=== PATIENT | male | born 1960 | race Caucasian/White ===

== ENCOUNTER 2018-03-21 12:09 | Inpatient (IN) ==
[2018-03-21] MEDS ORDERED: SODIUM CHLORIDE 0.9% 1,000 ML IV STA (12:50)
[2018-03-21] MEDS ORDERED: ONDANSETRON 4 MG/2 ML VIAL IV STA (12:50)
[2018-03-21 13:07] LABS: Basophils # 0.1 10*3/uL (0.0-0.2); Basophils % 0.5 % (0.0-0.8); Eosinophils # 0.1 10*3/uL (0.0-0.87); Eosinophils % 0.5 % (0.00-10.9); Hemoglobin 9.4 GM/DL (14.0-18.0); Immature Granulocytes % 1.3 %; Immature Granulocytes Absolute 0.13 #; Lymphocytes # 1.1 10*3/uL (1.4-4.0); Lymphocytes % 11.1 % (21.2-54.2); Mean Corpuscular HGB Conc 33.6 GM/DL (32-36); Mean Corpuscular Hemoglobin 32 PG (27-34); Mean Platelet Volume 10.5 FL (9.6-12.0); Monocytes # 0.6 10*3/uL (0.11-0.8); Monocytes % 5.7 % (1.7-12.7); Neutrophils # 8.3 10*3/uL (1.4-7.4); Neutrophils % 80.9 % (38.7-73.9); Platelet Count 126 T/CUMM (130-400); Red Blood Count 2.98 MC/CUMM (3.8-5.5); Red Cell Distribution Width 14.5 % (9.3-17.3); White Blood Count 10.3 T/CUMM (4-12)
[2018-03-21 13:19] LABS: INR 1.2; PT Patient Result 12.2 SECS; Partial Thromboplastin Time 24.8 SECS (0-40)
[2018-03-21 13:21] LABS: Alanine Aminotransferase 51 U/L (16-61); Albumin 3.3 G/DL (3.4-5.0); Alkaline Phosphatase 96 U/L (45-117); Aspartate Amino Transferase 47 U/L (0-37); Blood Urea Nitrogen 64 MG/DL (7-18); Calcium 9.2 MG/DL (8.5-10.1); Glucose 236 MG/DL (74-106); Osmolality,Calculated 302.5 MOS/KG (273-304); Potassium 4.6 MMOL/L (3.5-5.1); Sodium 139 MMOL/L (136-145); Total Protein 6.1 G/DL (6.4-8.3)
[2018-03-21 14:05] LABS: Lactic Acid 2.5 MMOL/L (0.4-2.0)
[2018-03-21] MEDS ORDERED: PANTOPRAZOLE 40 MG VIAL IV STA (14:16)
[2018-03-21] MEDS ORDERED: ONDANSETRON 4 MG/2 ML VIAL IV PRN (15:26)
[2018-03-21] MEDS ORDERED: PROMETHAZINE 25 MG/1 ML VIAL IM PRN (15:26)
[2018-03-21] MEDS ORDERED: diphenhydrAMINE CAP 25 MG CAPSULE PO PRN (15:26)
[2018-03-21] MEDS ORDERED: ACETAMINOPHEN 325 MG TABLET PO PRN (15:26)
[2018-03-21] MEDS ORDERED: MORPHINE 4 MG/1 ML VIAL IV PRN ×2 (15:26)
[2018-03-21] MEDS ORDERED: GLUCAGON 1 MG VIAL IM PRN (15:32)
[2018-03-21] MEDS ORDERED: DEXTROSE 50% 25 GM/50 ML VIAL IV PRN (15:32)
[2018-03-21] MEDS: SODIUM CHLORIDE 0.9% 1,000 ML IV SCH (17:38)
[2018-03-21] MEDS ORDERED: cefTRIAXone 1,000 MG in SYRINGE 1 EACH IV SCH (18:00)
[2018-03-21] MEDS: INSULIN LISPRO 100 UNIT/ML SUBCUT SCH (18:02)
[2018-03-21 18:10] LABS: Hematocrit 25.1 VOL% (42.0-52.0); Hemoglobin 8.5 GM/DL (14.0-18.0)
[2018-03-21] MEDS: PROPRANOLOL 10 MG TABLET PO SCH (20:17)
[2018-03-21] MEDS: clonazePAM 0.5 MG TABLET PO SCH (20:17)
[2018-03-21] MEDS: COLESTIPOL 1 GM TABLET PO SCH (20:17)
[2018-03-21] MEDS: PANTOPRAZOLE 40 MG VIAL IV SCH (22:00)
[2018-03-21 23:21] LABS: Hematocrit 21.1 VOL% (42.0-52.0); Hemoglobin 7.1 GM/DL (14.0-18.0)
[2018-03-22] MEDS: SODIUM CHLORIDE 0.9% 1,000 ML IV SCH ×2 (01:26→09:46)
[2018-03-22 06:35] LABS: INR 1.1
[2018-03-22 07:16] LABS: Calcium 7.6 MG/DL (8.5-10.1); Osmolality,Calculated 294.3 MOS/KG (273-304); Potassium 3.9 MMOL/L (3.5-5.1); Risk Ratio 5.82; Thyroid Stimulating Hormone 1.01 uIU/ml (0.358-3.74); VLDL CHOLESTEROL 43.2 MG/DL
[2018-03-22] MEDS: INSULIN LISPRO 100 UNIT/ML SUBCUT SCH ×2 (08:25→16:11)
[2018-03-22 08:27] LABS: Basophils % 0.3 % (0.0-0.8); Eosinophils # 0.1 10*3/uL (0.0-0.87); Eosinophils % 1.5 % (0.00-10.9); Hematocrit 22.4 VOL% (42.0-52.0); Hemoglobin 7.5 GM/DL (14.0-18.0); Immature Granulocytes Absolute 0.06 #; Lymphocytes # 0.6 10*3/uL (1.4-4.0); Lymphocytes % 10.1 % (21.2-54.2); Mean Corpuscular HGB Conc 33.5 GM/DL (32-36); Mean Corpuscular Hemoglobin 32 PG (27-34); Mean Corpuscular Volume 95.7 FL (87-102); Mean Platelet Volume 10.5 FL (9.6-12.0); Monocytes # 0.4 10*3/uL (0.11-0.8); Monocytes % 6.1 % (1.7-12.7); Neutrophils # 4.8 10*3/uL (1.4-7.4); Red Cell Distribution Width 14.9 % (9.3-17.3)
[2018-03-22 08:29] LABS: Red Blood Count 2.34 MC/CUMM (3.8-5.5); White Blood Count 5.9 T/CUMM (4-12)
[2018-03-22 08:30] LABS: Platelet Count 86 T/CUMM (130-400)
[2018-03-22 08:56] LABS: Hypochromasia 1+; Platelet Estimate Decreased
[2018-03-22] MEDS ORDERED: SODIUM CHLORIDE 0.9% 1,000 ML IV PRN (08:56)
[2018-03-22] MEDS ORDERED: MAGNESIUM SULF RIDER 2 GM in PREMIX 1 EACH IV ONE (09:00)
[2018-03-22] MEDS ORDERED: LOSARTAN 50 MG TABLET PO SCH (09:00)
[2018-03-22] MEDS ORDERED: ACETAMINOPHEN 325 MG TABLET PO ONE (10:00)
[2018-03-22] MEDS ORDERED: diphenhydrAMINE CAP 25 MG CAPSULE PO ONE (10:00)
[2018-03-22] MEDS: FENOFIBRATE 120 MG PO SCH ×2 (12:00→12:09)
[2018-03-22] MEDS: PROPRANOLOL 10 MG TABLET PO SCH ×2 (12:03→22:08)
[2018-03-22] MEDS: COLESTIPOL 1 GM TABLET PO SCH ×2 (12:08→22:08)
[2018-03-22] MEDS: OMEGA 3 ACID ETHYL ESTERS 1 GM CAPSULE PO SCH (12:09)
[2018-03-22] MEDS: PANTOPRAZOLE 40 MG VIAL IV SCH ×2 (16:44→22:10)
[2018-03-22 20:01] LABS: Hematocrit 24.8 VOL% (42.0-52.0); Hemoglobin 8.5 GM/DL (14.0-18.0)
[2018-03-22] MEDS: clonazePAM 0.5 MG TABLET PO SCH (22:08)
[2018-03-23] MEDS: SODIUM CHLORIDE 0.9% 1,000 ML IV SCH ×3 (02:34→21:40)
[2018-03-23 04:16] LABS: Basophils % 0.3 % (0.0-0.8); Eosinophils # 0.1 10*3/uL (0.0-0.87); Eosinophils % 1.9 % (0.00-10.9); Hematocrit 23.1 VOL% (42.0-52.0); Hemoglobin 7.7 GM/DL (14.0-18.0); Immature Granulocytes % 1.3 %; Immature Granulocytes Absolute 0.04 #; Lymphocytes # 0.7 10*3/uL (1.4-4.0); Lymphocytes % 22.5 % (21.2-54.2); Mean Corpuscular HGB Conc 33.3 GM/DL (32-36); Mean Corpuscular Hemoglobin 31 PG (27-34); Mean Corpuscular Volume 93.1 FL (87-102); Mean Platelet Volume 10.3 FL (9.6-12.0); Monocytes # 0.3 10*3/uL (0.11-0.8); NRBC # 0.04 10*3/uL; Neutrophils # 2.1 10*3/uL (1.4-7.4); Platelet Count 64 T/CUMM (130-400); Red Blood Count 2.48 MC/CUMM (3.8-5.5); Red Cell Distribution Width 14.9 % (9.3-17.3); White Blood Count 3.1 T/CUMM (4-12)
[2018-03-23 04:52] LABS: Band Neutrophils 2 % (0-10); Eosinophils 2 % (0-10); Hypochromasia 1+; Lymphocytes 23 % (20-55); Platelet Estimate Decreased; Segmented Neutrophils 67 % (50-85); Total Cells Counted 100
[2018-03-23] MEDS: FENOFIBRATE 120 MG PO SCH (08:22)
[2018-03-23] MEDS: COLESTIPOL 1 GM TABLET PO SCH ×2 (08:22→20:53)
[2018-03-23] MEDS: OMEGA 3 ACID ETHYL ESTERS 1 GM CAPSULE PO SCH (08:22)
[2018-03-23] MEDS: INSULIN LISPRO 100 UNIT/ML SUBCUT SCH ×2 (08:36→16:59)
[2018-03-23] MEDS: PANTOPRAZOLE 40 MG VIAL IV SCH ×2 (08:37→21:50)
[2018-03-23] MEDS: PROPRANOLOL 10 MG TABLET PO SCH ×2 (08:47→20:53)
[2018-03-23] MEDS ORDERED: LIDOCAINE 100 MG/5 ML SYRINGE ONE (09:00)
[2018-03-23] MEDS ORDERED: PROPOFOL 200 MG/20 ML VIAL IV ONE (09:00)
[2018-03-23] MEDS ORDERED: ONDANSETRON 4 MG/2 ML VIAL ONE (11:32)
[2018-03-23] MEDS ORDERED: GLUCAGON 1 MG VIAL IM PRN (12:05)
[2018-03-23] MEDS ORDERED: DEXTROSE 50% 25 GM/50 ML VIAL IV PRN (12:05)
[2018-03-23] MEDS: clonazePAM 0.5 MG TABLET PO SCH (20:53)
[2018-03-24] MEDS: SODIUM CHLORIDE 0.9% 1,000 ML IV SCH (05:40)
[2018-03-24 07:44] LABS: Basophils % 0.9 % (0.0-0.8); Eosinophils # 0.1 10*3/uL (0.0-0.87); Eosinophils % 1.5 % (0.00-10.9); Hematocrit 25.3 VOL% (42.0-52.0); Hemoglobin 8.4 GM/DL (14.0-18.0); Immature Granulocytes % 1.2 %; Immature Granulocytes Absolute 0.04 #; Lymphocytes # 0.7 10*3/uL (1.4-4.0); Lymphocytes % 19.8 % (21.2-54.2); Mean Corpuscular HGB Conc 33.2 GM/DL (32-36); Mean Corpuscular Hemoglobin 32 PG (27-34); Mean Corpuscular Volume 95.5 FL (87-102); Mean Platelet Volume 10.6 FL (9.6-12.0); Monocytes # 0.3 10*3/uL (0.11-0.8); Monocytes % 9.3 % (1.7-12.7); Neutrophils # 2.3 10*3/uL (1.4-7.4); Neutrophils % 67.3 % (38.7-73.9); Platelet Count 73 T/CUMM (130-400); Red Blood Count 2.65 MC/CUMM (3.8-5.5); Red Cell Distribution Width 15.2 % (9.3-17.3); White Blood Count 3.3 T/CUMM (4-12)
[2018-03-24 08:13] LABS: Polychromasia Few
[2018-03-24 08:14] LABS: Hypochromasia Slight
[2018-03-24 08:15] LABS: Folate 14.1 NG/ML (5.4-24.0); Stomatocytes Slight
[2018-03-24 08:16] LABS: Platelet Estimate Normal
[2018-03-24] MEDS: FENOFIBRATE 120 MG PO SCH (08:31)
[2018-03-24] MEDS: COLESTIPOL 1 GM TABLET PO SCH (08:32)
[2018-03-24] MEDS: PROPRANOLOL 10 MG TABLET PO SCH (08:32)
[2018-03-24] MEDS: OMEGA 3 ACID ETHYL ESTERS 1 GM CAPSULE PO SCH (08:33)
[2018-03-24] MEDS: INSULIN LISPRO 100 UNIT/ML SUBCUT SCH (08:34)
[2018-03-24] MEDS: PANTOPRAZOLE 40 MG VIAL IV SCH (08:36)
[2018-03-24 10:51] VITALS: BP 112/61
== END 2018-03-24 13:20 | disposition home or self-care (01) | DRG 433 ==
LOC: N.ED 12:09 → SUATTDRO 15:26 → N.EDINP 15:26 → N.2E 17:23
PROVIDERS: ADMIT Internal Medicine Cardiovascular Disease; ATTEND Internal Medicine

== ENCOUNTER 2021-06-17 15:29 | Inpatient (IN) ==
[2021-06-17 16:50] LABS: Basophils % 0.2 % (0.0-0.8); Hematocrit 29.8 VOL% (42.0-52.0); Hemoglobin 9.4 GM/DL (14.0-18.0); Immature Granulocytes % 0.6 %; Immature Granulocytes Absolute 0.03 #; Lymphocytes # 0.2 10*3/uL (1.4-4.0); Lymphocytes % 4.7 % (21.2-54.2); Mean Corpuscular HGB Conc 31.5 GM/DL (32-36); Mean Corpuscular Volume 88.7 FL (87-102); Monocytes % 9.7 % (1.7-12.7); Neutrophils % 84.8 % (38.7-73.9); Platelet Count 100 T/CUMM (130-400); Red Blood Count 3.36 MC/CUMM (3.8-5.5); Red Cell Distribution Width 17.5 % (9.3-17.3); White Blood Count 4.9 T/CUMM (4-12)
[2021-06-17 16:51] LABS: Bilirubin,Urine Negative (Negative); Blood, Urine Negative (Negative); Glucose,Urine (UA) Negative (Negative); Ketones,Urine Negative (Negative); Mucus,Urine Occasional /LPF (Occasional); Nitrite,Urine Negative (Negative); Protein,Urine Negative; RBC,Urine 1 /HPF (0-4); Urine Appearance CLEAR (Clear); Urine Color Amber (Yellow); Urine Specific Gravity 1.019 (1.001-1.035)
[2021-06-17 17:02] LABS: Albumin 2.9 G/DL (3.4-5.0); Bilirubin,Total 2.5 MG/DL (0.20-1.00); Calcium 8.7 MG/DL (8.5-10.1); Osmolality,Calculated 276.5 MOS/KG (273-304); Potassium 4.6 MMOL/L (3.5-5.1); Total Protein 7.8 G/DL (6.4-8.2)
[2021-06-17 17:46] LABS: Band Neutrophils 5 % (0-10); Lymphocytes 5 % (20-55); Segmented Neutrophils 84 % (50-85); Total Cells Counted 100
[2021-06-17 17:47] LABS: Hypochromasia Slight; Microcytosis Slight; Ovalocytes Slight; Platelet Estimate Decreased; Polychromasia Slight
[2021-06-17] MEDS ORDERED: HYDROmorphone 2 MG/1 ML VIAL IV STA (18:29)
[2021-06-17] MEDS ORDERED: ONDANSETRON 4 MG/2 ML VIAL IV STA (18:29)
[2021-06-17] MEDS ORDERED: GLUCAGON 1 MG VIAL IM PRN ×2 (18:35)
[2021-06-17] MEDS ORDERED: guaiFENesin/DM ER 600-30 MG TABLET PO PRN (18:35)
[2021-06-17] MEDS ORDERED: ONDANSETRON 4 MG/2 ML VIAL IV PRN (18:35)
[2021-06-17] MEDS ORDERED: DEXTROSE 50% 25 GM/50 ML VIAL IV PRN (18:35)
[2021-06-17] MEDS ORDERED: hydrALAZINE 20 MG/1 ML VIAL IV PRN (18:35)
[2021-06-17] MEDS ORDERED: MORPHINE 2 MG/1 ML SYRINGE IV PRN (18:35)
[2021-06-17] MEDS ORDERED: NICOTINE 21 MG/24 HR PATCH TRANSDERM PRN (18:35)
[2021-06-17] MEDS ORDERED: ZALEPLON 5 MG CAPSULE PO PRN (18:35)
[2021-06-17] MEDS ORDERED: MORPHINE 2 MG/1 ML SYRINGE IV STA (18:36)
[2021-06-17] MEDS ORDERED: DEXTROSE 50% 25 GM/50 ML SYRINGE IV PRN (18:50)
[2021-06-17] MEDS: ALBUTEROL/IPRATROPIUM 3 ML NEB RESP TX SCH (19:14)
[2021-06-17] MEDS: SPIRONOLACTONE 50 MG TABLET PO SCH (22:05)
[2021-06-17] MEDS: ATORVASTATIN 20 MG TABLET PO SCH (22:05)
[2021-06-17] MEDS: GABAPENTIN 300 MG CAPSULE PO SCH (22:05)
[2021-06-17] MEDS: HEPARIN 5,000 UNIT/1 ML VIAL SUBCUT SCH (22:05)
[2021-06-17] MEDS: TAMSULOSIN 0.4 MG CAPSULE PO SCH (22:05)
[2021-06-17] MEDS: HYDROmorphone 2 MG/1 ML VIAL IV PRN (22:07)
[2021-06-17] MEDS: INSULIN LISPRO 100 UNIT/ML SUBCUT SCH (23:30)
[2021-06-18] MEDS: ACETAMINOPHEN 325 MG TABLET PO PRN (01:09)
[2021-06-18] MEDS: ALBUTEROL/IPRATROPIUM 3 ML NEB RESP TX SCH ×4 (01:21→19:42)
[2021-06-18 04:30] LABS: Basophils % 0.6 % (0.0-0.8); Eosinophils % 0.3 % (0.00-10.9); Hemoglobin 8.2 GM/DL (14.0-18.0); Immature Granulocytes % 0.9 %; Immature Granulocytes Absolute 0.03 #; Lymphocytes # 0.3 10*3/uL (1.4-4.0); Lymphocytes % 10.6 % (21.2-54.2); Mean Corpuscular HGB Conc 31.5 GM/DL (32-36); Mean Corpuscular Volume 90.9 FL (87-102); Mean Platelet Volume 9.8 FL (9.6-12.0); Monocytes % 14.6 % (1.7-12.7); Red Blood Count 2.86 MC/CUMM (3.8-5.5); Red Cell Distribution Width 17.4 % (9.3-17.3); White Blood Count 3.2 T/CUMM (4-12)
[2021-06-18 04:32] LABS: Platelet Count 77 T/CUMM (130-400)
[2021-06-18 04:48] LABS: Albumin 2.6 G/DL (3.4-5.0); Bilirubin,Total 2.8 MG/DL (0.20-1.00); Calcium 8.5 MG/DL (8.5-10.1); Osmolality,Calculated 273.8 MOS/KG (273-304); Potassium 4.3 MMOL/L (3.5-5.1); Total Protein 6.8 G/DL (6.4-8.2)
[2021-06-18 04:51] LABS: Hypochromasia 1+; Microcytosis 1+
[2021-06-18] MEDS: HYDROmorphone 2 MG/1 ML VIAL IV PRN ×3 (06:03→20:42)
[2021-06-18] MEDS: INSULIN LISPRO 100 UNIT/ML SUBCUT SCH ×4 (07:48→21:07)
[2021-06-18 07:59] LABS: INR 1.5; PT Patient Result 16.1 SECS (10.5-12.0)
[2021-06-18] MEDS: HEPARIN 5,000 UNIT/1 ML VIAL SUBCUT SCH ×2 (08:01→20:42)
[2021-06-18] MEDS ORDERED: LOSARTAN 50 MG TABLET PO SCH (09:00)
[2021-06-18] MEDS ORDERED: TISSUE ADHESIVE 1 EACH APPLICATOR TOP ONE (09:09)
[2021-06-18] MEDS ORDERED: ALBUMIN 25% 12.5 GM/50 ML VIAL IV ONE ×2 (09:12→09:47)
[2021-06-18] MEDS: ASCORBIC ACID 500 MG TABLET PO SCH (09:50)
[2021-06-18] MEDS: PROPRANOLOL 10 MG TABLET PO SCH (09:50)
[2021-06-18] MEDS: PANTOPRAZOLE 40 MG TABLET PO SCH (09:50)
[2021-06-18] MEDS: TAMSULOSIN 0.4 MG CAPSULE PO SCH ×2 (09:50→20:50)
[2021-06-18] MEDS: GABAPENTIN 300 MG CAPSULE PO SCH ×3 (09:50→20:51)
[2021-06-18] MEDS: amLODIPine 5 MG TABLET PO SCH (09:50)
[2021-06-18] MEDS: SPIRONOLACTONE 50 MG TABLET PO SCH ×2 (09:50→20:50)
[2021-06-18] MEDS: BISACODYL 5 MG TABLET PO SCH (09:58)
[2021-06-18] MEDS: ATORVASTATIN 20 MG TABLET PO SCH (20:51)
[2021-06-19] MEDS: diphenhydrAMINE CAP 25 MG CAPSULE PO PRN ×2 (00:16→20:48)
[2021-06-19] MEDS: ALBUTEROL/IPRATROPIUM 3 ML NEB RESP TX SCH ×4 (00:42→20:09)
[2021-06-19 06:50] LABS: Basophils % 0.3 % (0.0-0.8); Eosinophils # 0.1 10*3/uL (0.0-0.87); Eosinophils % 1.7 % (0.00-10.9); Hematocrit 26.5 VOL% (42.0-52.0); Hemoglobin 8.2 GM/DL (14.0-18.0); Immature Granulocytes % 0.7 %; Immature Granulocytes Absolute 0.02 #; Lymphocytes # 0.4 10*3/uL (1.4-4.0); Lymphocytes % 14.5 % (21.2-54.2); Mean Corpuscular HGB Conc 30.9 GM/DL (32-36); Mean Platelet Volume 10.6 FL (9.6-12.0); Monocytes % 12.1 % (1.7-12.7); Neutrophils % 70.7 % (38.7-73.9); Platelet Count 74 T/CUMM (130-400); Red Blood Count 2.88 MC/CUMM (3.8-5.5); Red Cell Distribution Width 17.4 % (9.3-17.3)
[2021-06-19 07:18] LABS: Calcium 8.1 MG/DL (8.5-10.1); Osmolality,Calculated 276.2 MOS/KG (273-304); Potassium 4.4 MMOL/L (3.5-5.1)
[2021-06-19 07:18] LABS: Anisocytosis 1+; Band Neutrophils 4 % (0-10); Eosinophils 3 % (0-10); Lymphocytes 11 % (20-55); Macrocytosis 1+; Platelet Estimate Decreased; Segmented Neutrophils 72 % (50-85); Total Cells Counted 100
[2021-06-19 07:19] LABS: Polychromasia Slight
[2021-06-19] MEDS: HEPARIN 5,000 UNIT/1 ML VIAL SUBCUT SCH ×2 (08:27→20:48)
[2021-06-19] MEDS: TAMSULOSIN 0.4 MG CAPSULE PO SCH ×2 (08:27→20:49)
[2021-06-19] MEDS: HYDROmorphone 2 MG/1 ML VIAL IV PRN ×2 (08:27→19:51)
[2021-06-19] MEDS: PANTOPRAZOLE 40 MG TABLET PO SCH (08:28)
[2021-06-19] MEDS: BISACODYL 5 MG TABLET PO SCH (08:28)
[2021-06-19] MEDS: amLODIPine 5 MG TABLET PO SCH (08:28)
[2021-06-19] MEDS: ASCORBIC ACID 500 MG TABLET PO SCH (08:28)
[2021-06-19] MEDS: PROPRANOLOL 10 MG TABLET PO SCH (08:28)
[2021-06-19] MEDS: GABAPENTIN 300 MG CAPSULE PO SCH ×3 (08:28→20:07)
[2021-06-19 08:40] LABS: Osmolality,Calculated 277.1 MOS/KG (273-304); Potassium 5.1 MMOL/L (3.5-5.1)
[2021-06-19] MEDS: INSULIN LISPRO 100 UNIT/ML SUBCUT SCH ×4 (09:44→20:07)
[2021-06-19] MEDS ORDERED: ALBUMIN 25% 50 GM/200 ML VIAL IV ONE (13:00)
[2021-06-19] MEDS: ATORVASTATIN 20 MG TABLET PO SCH (20:49)
[2021-06-19] MEDS: VALPROIC ACID 250 MG/5 ML UDCUP PO SCH (20:49)
[2021-06-19] MEDS ORDERED: SPIRONOLACTONE 25 MG TABLET PO SCH (21:00)
[2021-06-20] MEDS: ALBUTEROL/IPRATROPIUM 3 ML NEB RESP TX SCH ×4 (00:46→19:55)
[2021-06-20 04:08] LABS: Neutrophils,Peritoneal Fluid 78 %; RBC,Peritoneal Fluid 1292 T/CUMM
[2021-06-20 06:05] LABS: Basophils % 0.3 % (0.0-0.8); Eosinophils # 0.1 10*3/uL (0.0-0.87); Eosinophils % 1.6 % (0.00-10.9); Hematocrit 26.8 VOL% (42.0-52.0); Hemoglobin 8.5 GM/DL (14.0-18.0); Immature Granulocytes % 0.5 %; Immature Granulocytes Absolute 0.02 #; Lymphocytes # 0.5 10*3/uL (1.4-4.0); Lymphocytes % 14.6 % (21.2-54.2); Mean Corpuscular HGB Conc 31.7 GM/DL (32-36); Mean Corpuscular Volume 91.2 FL (87-102); Mean Platelet Volume 10.3 FL (9.6-12.0); Monocytes % 10.8 % (1.7-12.7); Neutrophils % 72.2 % (38.7-73.9); Platelet Count 101 T/CUMM (130-400); Red Blood Count 2.94 MC/CUMM (3.8-5.5); Red Cell Distribution Width 17.4 % (9.3-17.3); White Blood Count 3.7 T/CUMM (4-12)
[2021-06-20 06:29] LABS: Hypochromasia 1+; Microcytosis 1+; Platelet Estimate Decreased
[2021-06-20 06:32] LABS: Bilirubin,Total 2.2 MG/DL (0.20-1.00); Osmolality,Calculated 280.4 MOS/KG (273-304); Potassium 4.7 MMOL/L (3.5-5.1); Total Protein 7.3 G/DL (6.4-8.2)
[2021-06-20] MEDS: INSULIN LISPRO 100 UNIT/ML SUBCUT SCH ×4 (07:49→20:51)
[2021-06-20] MEDS: VALPROIC ACID 250 MG/5 ML UDCUP PO SCH ×3 (08:34→20:50)
[2021-06-20] MEDS: HEPARIN 5,000 UNIT/1 ML VIAL SUBCUT SCH ×2 (08:35→19:58)
[2021-06-20] MEDS: PROPRANOLOL 10 MG TABLET PO SCH (08:35)
[2021-06-20] MEDS: BISACODYL 5 MG TABLET PO SCH (08:35)
[2021-06-20] MEDS: amLODIPine 5 MG TABLET PO SCH (08:35)
[2021-06-20] MEDS: TAMSULOSIN 0.4 MG CAPSULE PO SCH ×3 (08:36→20:51)
[2021-06-20] MEDS: PANTOPRAZOLE 40 MG TABLET PO SCH (08:36)
[2021-06-20] MEDS: GABAPENTIN 300 MG CAPSULE PO SCH ×4 (08:36→20:51)
[2021-06-20] MEDS: ASCORBIC ACID 500 MG TABLET PO SCH (08:36)
[2021-06-20] MEDS ORDERED: SODIUM CHLORIDE 0.9% 500 ML IV SCH (08:45)
[2021-06-20] MEDS: CIPROFLOXACIN INJ 400 MG/200 ML PREMIX IV SCH (09:13)
[2021-06-20] MEDS: LACTULOSE 20 GM/30 ML UDCUP PO SCH ×3 (13:16→20:50)
[2021-06-20] MEDS: ATORVASTATIN 20 MG TABLET PO SCH ×2 (19:58→20:51)
[2021-06-21] MEDS: ALBUTEROL/IPRATROPIUM 3 ML NEB RESP TX SCH ×4 (00:02→19:20)
[2021-06-21 05:39] LABS: Basophils % 0.3 % (0.0-0.8); Eosinophils # 0.1 10*3/uL (0.0-0.87); Eosinophils % 1.6 % (0.00-10.9); Hematocrit 25.7 VOL% (42.0-52.0); Hemoglobin 8.2 GM/DL (14.0-18.0); Immature Granulocytes % 0.3 %; Immature Granulocytes Absolute 0.01 #; Lymphocytes # 0.4 10*3/uL (1.4-4.0); Lymphocytes % 11.8 % (21.2-54.2); Mean Corpuscular HGB Conc 31.9 GM/DL (32-36); Mean Corpuscular Volume 89.5 FL (87-102); Mean Platelet Volume 10.2 FL (9.6-12.0); Monocytes % 16.4 % (1.7-12.7); Neutrophils % 69.6 % (38.7-73.9); Platelet Count 94 T/CUMM (130-400); Red Blood Count 2.87 MC/CUMM (3.8-5.5); Red Cell Distribution Width 17.2 % (9.3-17.3); White Blood Count 3.1 T/CUMM (4-12)
[2021-06-21 06:11] LABS: Uric Acid 7.9 MG/DL (3.5-7.2)
[2021-06-21 06:12] LABS: Albumin 2.7 G/DL (3.4-5.0); Bilirubin,Total 1.6 MG/DL (0.20-1.00); Calcium 8.2 MG/DL (8.5-10.1); Osmolality,Calculated 285.5 MOS/KG (273-304); Potassium 4.6 MMOL/L (3.5-5.1); Total Protein 6.7 G/DL (6.4-8.2)
[2021-06-21 06:29] LABS: Lymphocytes 9 % (20-55); Segmented Neutrophils 84 % (50-85); Total Cells Counted 100
[2021-06-21 06:30] LABS: Platelet Estimate Decreased
[2021-06-21 06:31] LABS: Hypochromasia Slight; Microcytosis 1+
[2021-06-21 06:33] LABS: Polychromasia Slight
[2021-06-21] MEDS: ACETAMINOPHEN 325 MG TABLET PO PRN (09:32)
[2021-06-21] MEDS: BISACODYL 5 MG TABLET PO SCH (09:32)
[2021-06-21] MEDS: GABAPENTIN 300 MG CAPSULE PO SCH ×3 (09:32→20:53)
[2021-06-21] MEDS: PANTOPRAZOLE 40 MG TABLET PO SCH (09:33)
[2021-06-21] MEDS: ASCORBIC ACID 500 MG TABLET PO SCH (09:33)
[2021-06-21] MEDS: INSULIN LISPRO 100 UNIT/ML SUBCUT SCH ×4 (09:33→21:05)
[2021-06-21] MEDS: HEPARIN 5,000 UNIT/1 ML VIAL SUBCUT SCH (09:33)
[2021-06-21] MEDS: LACTULOSE 20 GM/30 ML UDCUP PO SCH ×2 (09:34→20:53)
[2021-06-21] MEDS: CIPROFLOXACIN INJ 400 MG/200 ML PREMIX IV SCH (09:34)
[2021-06-21] MEDS: VALPROIC ACID 250 MG/5 ML UDCUP PO SCH (09:34)
[2021-06-21] MEDS: PROPRANOLOL 10 MG TABLET PO SCH (09:58)
[2021-06-21] MEDS: amLODIPine 5 MG TABLET PO SCH (09:58)
[2021-06-21] MEDS: HYDROmorphone 2 MG/1 ML VIAL IV PRN ×2 (10:18→21:10)
[2021-06-21] MEDS: TAMSULOSIN 0.4 MG CAPSULE PO SCH ×2 (11:22→20:53)
[2021-06-21] MEDS ORDERED: ALBUMIN 25% 25 GM/100 ML VIAL IV ONE (13:52)
[2021-06-22] MEDS: ALBUTEROL/IPRATROPIUM 3 ML NEB RESP TX SCH ×4 (00:17→19:45)
[2021-06-22] MEDS ORDERED: ALBUMIN 25% 25 GM/100 ML VIAL IV ONE (02:02)
[2021-06-22] MEDS: INSULIN LISPRO 100 UNIT/ML SUBCUT SCH ×4 (12:51→20:42)
[2021-06-22] MEDS: GABAPENTIN 300 MG CAPSULE PO SCH ×3 (12:52→20:42)
[2021-06-22] MEDS: CIPROFLOXACIN INJ 400 MG/200 ML PREMIX IV SCH (12:52)
[2021-06-22] MEDS: BISACODYL 5 MG TABLET PO SCH (12:52)
[2021-06-22] MEDS: LACTULOSE 20 GM/30 ML UDCUP PO SCH ×2 (12:52→20:41)
[2021-06-22] MEDS: TAMSULOSIN 0.4 MG CAPSULE PO SCH ×2 (12:52→20:42)
[2021-06-22] MEDS: ASCORBIC ACID 500 MG TABLET PO SCH (12:53)
[2021-06-22 13:06] LABS: Complement C3 94.3 MG/DL (90.0-180.0)
[2021-06-22 13:07] LABS: Calcium 8.4 MG/DL (8.5-10.1); Potassium 4.6 MMOL/L (3.5-5.1)
[2021-06-22 13:38] LABS: Basophils % 0.5 % (0.0-0.8); Eosinophils % 1.5 % (0.00-10.9); Hematocrit 23.9 VOL% (42.0-52.0); Hemoglobin 7.5 GM/DL (14.0-18.0); Immature Granulocytes Absolute 0.02 #; Lymphocytes # 0.4 10*3/uL (1.4-4.0); Lymphocytes % 17.3 % (21.2-54.2); Mean Corpuscular HGB Conc 31.4 GM/DL (32-36); Mean Corpuscular Volume 89.8 FL (87-102); Mean Platelet Volume 9.9 FL (9.6-12.0); Monocytes % 14.9 % (1.7-12.7); Neutrophils % 64.8 % (38.7-73.9); Platelet Count 90 T/CUMM (130-400); Red Blood Count 2.66 MC/CUMM (3.8-5.5); Red Cell Distribution Width 17.3 % (9.3-17.3)
[2021-06-22 14:47] LABS: Total Protein 7.2 G/DL (6.4-8.2)
[2021-06-22 16:06] LABS: Bacteria,Urine Occasional /HPF (Few); Bilirubin,Urine Negative (Negative); Blood, Urine Negative (Negative); Glucose,Urine (UA) Negative (Negative); Ketones,Urine Negative (Negative); Nitrite,Urine Negative (Negative); Protein,Urine Negative; RBC,Urine 3 /HPF (0-4); Urine Appearance CLEAR (Clear); Urine Color Yellow (Yellow); Urine Specific Gravity 1.005 (1.001-1.035); Urine Urobilinogen < 2.0 EU/DL (0.2-1.0)
[2021-06-22] MEDS: ACETAMINOPHEN 325 MG TABLET PO PRN (17:14)
[2021-06-22 17:23] LABS: Platelet Estimate Adequate
[2021-06-23] MEDS: ALBUTEROL/IPRATROPIUM 3 ML NEB RESP TX SCH ×4 (00:58→19:54)
[2021-06-23] MEDS: INSULIN LISPRO 100 UNIT/ML SUBCUT SCH ×4 (08:00→20:46)
[2021-06-23] MEDS: ASCORBIC ACID 500 MG TABLET PO SCH (08:19)
[2021-06-23] MEDS: GABAPENTIN 300 MG CAPSULE PO SCH ×3 (08:19→20:46)
[2021-06-23] MEDS: BISACODYL 5 MG TABLET PO SCH (08:19)
[2021-06-23] MEDS: LACTULOSE 20 GM/30 ML UDCUP PO SCH ×3 (08:19→20:50)
[2021-06-23] MEDS: TAMSULOSIN 0.4 MG CAPSULE PO SCH ×2 (08:19→20:46)
[2021-06-23] MEDS: CIPROFLOXACIN INJ 400 MG/200 ML PREMIX IV SCH (09:06)
[2021-06-23 09:16] LABS: Basophils % 0.6 % (0.0-0.8); Eosinophils % 1.8 % (0.00-10.9); Hematocrit 26.5 VOL% (42.0-52.0); Hemoglobin 8.2 GM/DL (14.0-18.0); Immature Granulocytes % 0.6 %; Immature Granulocytes Absolute 0.01 #; Lymphocytes # 0.3 10*3/uL (1.4-4.0); Lymphocytes % 17.5 % (21.2-54.2); Mean Corpuscular HGB Conc 30.9 GM/DL (32-36); Mean Corpuscular Volume 91.1 FL (87-102); Mean Platelet Volume 10.2 FL (9.6-12.0); Monocytes % 16.4 % (1.7-12.7); Neutrophils % 63.1 % (38.7-73.9); Platelet Count 92 T/CUMM (130-400); Red Blood Count 2.91 MC/CUMM (3.8-5.5); Red Cell Distribution Width 17.6 % (9.3-17.3); White Blood Count 1.7 T/CUMM (4-12)
[2021-06-23 09:31] LABS: Osmolality,Calculated 302.8 MOS/KG (273-304); Potassium 4.5 MMOL/L (3.5-5.1)
[2021-06-23 09:41] LABS: Immunoglobulin A (Chem) 441 MG/DL (70-400); Immunoglobulin G (Chem) 1610 MG/DL (700-1600); Immunoglobulin M (Chem) 199 MG/DL (40-230); Total Protein (Chem) 7.2 G/DL (6.4-8.3)
[2021-06-23 09:56] LABS: INR 1.4; PT Patient Result 15.1 SECS (10.5-12.0)
[2021-06-23 10:00] LABS: Eosinophils 2 % (0-10); Hypochromasia 1+; Lymphocytes 13 % (20-55); Microcytosis 1+; Platelet Estimate Decreased; Segmented Neutrophils 72 % (50-85); Total Cells Counted 100
[2021-06-23 11:28] LABS: Albumin (SPE) 4.1 G/DL (3.2-5.3); Albumin (SPE) Rel % 56.8 %; Alpha 1 (SPE) 0.2 G/DL (0.1-0.4); Alpha 1 (SPE) Rel % 2.5 %; Alpha 2 (SPE) 0.6 G/DL (0.4-1.0); Alpha 2 (SPE) Rel % 8.3 %; Beta (SPE) 0.6 G/DL (0.5-1.1); Beta (SPE) Rel % 8.4 %; Gamma (SPE) 1.7 G/DL (0.7-1.7)
[2021-06-23] MEDS: ACETAMINOPHEN 325 MG TABLET PO PRN (14:39)
[2021-06-24] MEDS: ALBUTEROL/IPRATROPIUM 3 ML NEB RESP TX SCH ×4 (03:28→20:33)
[2021-06-24 04:51] LABS: Basophils % 0.6 % (0.0-0.8); Eosinophils # 0.1 10*3/uL (0.0-0.87); Eosinophils % 3.2 % (0.00-10.9); Immature Granulocytes % 1.3 %; Immature Granulocytes Absolute 0.02 #; Lymphocytes # 0.3 10*3/uL (1.4-4.0); Lymphocytes % 15.8 % (21.2-54.2); Mean Corpuscular HGB Conc 30.8 GM/DL (32-36); Mean Corpuscular Volume 91.5 FL (87-102); Mean Platelet Volume 9.8 FL (9.6-12.0); Monocytes % 13.3 % (1.7-12.7); Neutrophils % 65.8 % (38.7-73.9); Platelet Count 87 T/CUMM (130-400); Red Blood Count 2.84 MC/CUMM (3.8-5.5); Red Cell Distribution Width 17.7 % (9.3-17.3); White Blood Count 1.6 T/CUMM (4-12)
[2021-06-24 05:11] LABS: Calcium 8.9 MG/DL (8.5-10.1); Osmolality,Calculated 297.8 MOS/KG (273-304); Potassium 4.6 MMOL/L (3.5-5.1)
[2021-06-24 05:12] LABS: Hypochromasia 1+; Lymphocytes 20 % (20-55); Microcytosis 1+; Platelet Estimate Decreased; Segmented Neutrophils 68 % (50-85); Total Cells Counted 100
[2021-06-24] MEDS: PROPRANOLOL 10 MG TABLET PO SCH (08:09)
[2021-06-24] MEDS: GABAPENTIN 300 MG CAPSULE PO SCH ×3 (08:09→20:55)
[2021-06-24] MEDS: INSULIN LISPRO 100 UNIT/ML SUBCUT SCH ×4 (08:09→21:05)
[2021-06-24] MEDS: LACTULOSE 20 GM/30 ML UDCUP PO SCH ×2 (08:09→21:05)
[2021-06-24] MEDS: BISACODYL 5 MG TABLET PO SCH (08:09)
[2021-06-24] MEDS: TAMSULOSIN 0.4 MG CAPSULE PO SCH ×2 (08:09→20:55)
[2021-06-24] MEDS: amLODIPine 5 MG TABLET PO SCH (08:10)
[2021-06-24] MEDS: CIPROFLOXACIN INJ 400 MG/200 ML PREMIX IV SCH (08:10)
[2021-06-24] MEDS: ASCORBIC ACID 500 MG TABLET PO SCH (08:10)
[2021-06-24] MEDS: ACETAMINOPHEN 325 MG TABLET PO PRN (15:57)
[2021-06-25] MEDS ORDERED: ALUMINUM/MAGNES/SIMETH MAX STR 30 ML UDCUP PO PRN (00:28)
[2021-06-25] MEDS: ALBUTEROL/IPRATROPIUM 3 ML NEB RESP TX SCH ×4 (02:14→19:28)
[2021-06-25 05:53] LABS: Basophils % 0.6 % (0.0-0.8); Eosinophils # 0.1 10*3/uL (0.0-0.87); Eosinophils % 3.1 % (0.00-10.9); Hematocrit 24.6 VOL% (42.0-52.0); Hemoglobin 7.5 GM/DL (14.0-18.0); Immature Granulocytes % 0.6 %; Immature Granulocytes Absolute 0.01 #; Lymphocytes # 0.3 10*3/uL (1.4-4.0); Lymphocytes % 20.8 % (21.2-54.2); Mean Corpuscular HGB Conc 30.5 GM/DL (32-36); Mean Corpuscular Volume 93.9 FL (87-102); Monocytes % 12.6 % (1.7-12.7); Neutrophils % 62.3 % (38.7-73.9); Platelet Count 89 T/CUMM (130-400); Red Blood Count 2.62 MC/CUMM (3.8-5.5); Red Cell Distribution Width 18.1 % (9.3-17.3); White Blood Count 1.6 T/CUMM (4-12)
[2021-06-25 05:59] LABS: Calcium 8.5 MG/DL (8.5-10.1); Osmolality,Calculated 289.3 MOS/KG (273-304); Potassium 4.4 MMOL/L (3.5-5.1)
[2021-06-25 06:13] LABS: Hypochromasia Slight; Lymphocytes 22 % (20-55); Platelet Estimate Decreased; Segmented Neutrophils 71 % (50-85); Total Cells Counted 100
[2021-06-25] MEDS ORDERED: MAGNESIUM SULF RIDER 1 GM/100 ML PREMIX IV ONE (08:41)
[2021-06-25] MEDS: ASCORBIC ACID 500 MG TABLET PO SCH (09:20)
[2021-06-25] MEDS: amLODIPine 5 MG TABLET PO SCH (09:20)
[2021-06-25] MEDS: PROPRANOLOL 10 MG TABLET PO SCH (09:20)
[2021-06-25] MEDS: LACTULOSE 20 GM/30 ML UDCUP PO SCH ×2 (09:21→23:38)
[2021-06-25] MEDS: TAMSULOSIN 0.4 MG CAPSULE PO SCH ×2 (09:21→21:07)
[2021-06-25] MEDS: GABAPENTIN 300 MG CAPSULE PO SCH ×3 (09:21→21:07)
[2021-06-25] MEDS: BISACODYL 5 MG TABLET PO SCH (09:21)
[2021-06-25] MEDS: CIPROFLOXACIN INJ 400 MG/200 ML PREMIX IV SCH (09:24)
[2021-06-25] MEDS: INSULIN LISPRO 100 UNIT/ML SUBCUT SCH ×4 (10:06→21:09)
[2021-06-25] MEDS: ACETAMINOPHEN 325 MG TABLET PO PRN (19:16)
[2021-06-25] MEDS: SPIRONOLACTONE 50 MG TABLET PO SCH (21:07)
[2021-06-26] MEDS: ALBUTEROL/IPRATROPIUM 3 ML NEB RESP TX SCH ×3 (00:08→12:27)
[2021-06-26] MEDS: ACETAMINOPHEN 325 MG TABLET PO PRN (05:17)
[2021-06-26 05:43] LABS: Basophils % 1.2 % (0.0-0.8); Eosinophils # 0.1 10*3/uL (0.0-0.87); Hemoglobin 8.4 GM/DL (14.0-18.0); Immature Granulocytes % 1.2 %; Immature Granulocytes Absolute 0.02 #; Lymphocytes # 0.3 10*3/uL (1.4-4.0); Lymphocytes % 19.9 % (21.2-54.2); Mean Corpuscular HGB Conc 31.1 GM/DL (32-36); Mean Corpuscular Volume 92.2 FL (87-102); Neutrophils % 62.7 % (38.7-73.9); Platelet Count 88 T/CUMM (130-400); Red Blood Count 2.93 MC/CUMM (3.8-5.5); Red Cell Distribution Width 17.7 % (9.3-17.3); White Blood Count 1.7 T/CUMM (4-12)
[2021-06-26 06:08] LABS: Eosinophils 2 % (0-10); Hypochromasia 1+; Lymphocytes 18 % (20-55); Microcytosis 1+; Myelocytes 1 %; Ovalocytes Slight; Platelet Estimate Decreased; Polychromasia Slight; Segmented Neutrophils 68 % (50-85); Total Cells Counted 100
[2021-06-26 06:26] LABS: Calcium 8.5 MG/DL (8.5-10.1); Osmolality,Calculated 287.3 MOS/KG (273-304); Potassium 4.4 MMOL/L (3.5-5.1)
[2021-06-26] MEDS ORDERED: MAGNESIUM SULF RIDER 2 GM/50 ML PREMIX IV ONE (08:13)
[2021-06-26] MEDS: PROPRANOLOL 10 MG TABLET PO SCH (08:44)
[2021-06-26] MEDS: GABAPENTIN 300 MG CAPSULE PO SCH (08:44)
[2021-06-26] MEDS: SPIRONOLACTONE 50 MG TABLET PO SCH (08:44)
[2021-06-26] MEDS: ASCORBIC ACID 500 MG TABLET PO SCH (08:44)
[2021-06-26] MEDS: TAMSULOSIN 0.4 MG CAPSULE PO SCH (08:45)
[2021-06-26] MEDS: amLODIPine 5 MG TABLET PO SCH (08:45)
[2021-06-26] MEDS: CIPROFLOXACIN INJ 400 MG/200 ML PREMIX IV SCH (08:49)
[2021-06-26] MEDS: INSULIN LISPRO 100 UNIT/ML SUBCUT SCH ×2 (08:53→12:51)
[2021-06-26] MEDS: LACTULOSE 20 GM/30 ML UDCUP PO SCH (08:53)
[2021-06-26] MEDS: BISACODYL 5 MG TABLET PO SCH (08:53)
[2021-06-26 12:30] VITALS: BP 131/52
== END 2021-06-26 15:15 | disposition home or self-care (01) | DRG 432 ==
LOC: EDUNIT# → EDBD → N.ED 15:29 → SUATTDRO 18:35 → N.EDINP 18:35 → N.3E 06-18 10:55 → N.CC 06-22 05:42 → N.2E 06-24 17:43
PROVIDERS: ADMIT Internal Medicine; ATTEND Internal Medicine

== ENCOUNTER 2021-07-25 13:50 | Inpatient (IN) ==
[2021-07-25 15:10] LABS: Barbiturates Screen,Urine Negative (Negative); Benzodiazepines Screen,Urine Negative (Negative); Cannabinoid Screen,Urine Negative (Negative); Opiate Screen,Urine Negative (Negative); Phencyclidine Screen,Urine Negative (Negative)
[2021-07-25 15:12] LABS: Basophils % 0.2 % (0.0-0.8); Hematocrit 33.4 VOL% (42.0-52.0); Hemoglobin 10.6 GM/DL (14.0-18.0); Immature Granulocytes % 0.5 %; Immature Granulocytes Absolute 0.03 #; Lymphocytes # 0.2 10*3/uL (1.4-4.0); Lymphocytes % 3.6 % (21.2-54.2); Mean Corpuscular HGB Conc 31.7 GM/DL (32-36); Mean Corpuscular Volume 89.8 FL (87-102); Mean Platelet Volume 12.2 FL (9.6-12.0); Monocytes % 8.5 % (1.7-12.7); Neutrophils % 87.2 % (38.7-73.9); Platelet Count 79 T/CUMM (130-400); Red Blood Count 3.72 MC/CUMM (3.8-5.5); Red Cell Distribution Width 18.6 % (9.3-17.3); White Blood Count 5.8 T/CUMM (4-12)
[2021-07-25 15:15] LABS: Bilirubin,Urine Negative (Negative); Blood, Urine Negative (Negative); Glucose,Urine (UA) Negative (Negative); Hyaline Casts,Urine 3 /LPF (0-3); Ketones,Urine Negative (Negative); Nitrite,Urine Negative (Negative); Protein,Urine Negative; RBC,Urine 1 /HPF (0-4); Urine Appearance CLEAR (Clear); Urine Color Yellow (Yellow); Urine Specific Gravity 1.017 (1.001-1.035); Urine Urobilinogen < 2.0 EU/DL (<2.0)
[2021-07-25 16:03] LABS: Alanine Aminotransferase 36 U/L (16-61); Albumin 2.8 G/DL (3.4-5.0); Alkaline Phosphatase 208 U/L (45-117); Aspartate Amino Transferase 95 U/L (0-37); Blood Urea Nitrogen 29 MG/DL (7-18); Calcium 8.9 MG/DL (8.5-10.1); Carbon Dioxide 18 MMOL/L (21-32); Estimated Glom Filtration Rate 117 ML/MIN; Glucose 169 MG/DL (74-106); Osmolality,Calculated 286.5 MOS/KG (273-304); Potassium 4.6 MMOL/L (3.5-5.1); Sodium 139 MMOL/L (136-145); Total Protein 7.6 G/DL (6.4-8.2)
[2021-07-25 16:28] LABS: Band Neutrophils 1 % (0-10); Lymphocytes 3 % (20-55); Segmented Neutrophils 88 % (50-85); Total Cells Counted 100
[2021-07-25 16:30] LABS: Microcytosis 1+; Ovalocytes Slight; Platelet Estimate Decreased; Polychromasia Slight; Schistocytes Slight; Tear Drop Cells Slight
[2021-07-25 16:43] LABS: INR 1.4; PT Patient Result 15.1 SECS (10.5-12.0)
[2021-07-25] MEDS ORDERED: GLUCAGON 1 MG VIAL IM PRN (17:12)
[2021-07-25] MEDS ORDERED: DEXTROSE 50% 25 GM/50 ML SYRINGE IV PRN (17:12)
[2021-07-25] MEDS ORDERED: ONDANSETRON 4 MG/2 ML VIAL IV PRN (17:12)
[2021-07-25] MEDS: LACTULOSE 20 GM/30 ML UDCUP PO SCH (18:37)
[2021-07-25] MEDS ORDERED: FUROSEMIDE 20 MG/2 ML VIAL IV ONE (19:11)
[2021-07-25] MEDS ORDERED: LACTULOSE 20 GM/30 ML UDCUP PO SCH (21:00)
[2021-07-25] MEDS ORDERED: SPIRONOLACTONE 50 MG TABLET PO SCH (21:00)
[2021-07-25] MEDS: ATORVASTATIN 20 MG TABLET PO SCH (22:43)
[2021-07-25] MEDS: TAMSULOSIN 0.4 MG CAPSULE PO SCH (22:43)
[2021-07-25] MEDS: GABAPENTIN 300 MG CAPSULE PO SCH (22:43)
[2021-07-25] MEDS: INSULIN LISPRO 100 UNIT/ML SUBCUT SCH (22:44)
[2021-07-26] MEDS: LACTULOSE 20 GM/30 ML UDCUP PO SCH ×4 (01:14→17:30)
[2021-07-26 06:55] LABS: Basophils % 0.2 % (0.0-0.8); Eosinophils % 0.9 % (0.00-10.9); Hematocrit 29.1 VOL% (42.0-52.0); Hemoglobin 9.2 GM/DL (14.0-18.0); Immature Granulocytes % 0.7 %; Immature Granulocytes Absolute 0.03 #; Lymphocytes # 0.5 10*3/uL (1.4-4.0); Lymphocytes % 10.2 % (21.2-54.2); Mean Corpuscular HGB Conc 31.6 GM/DL (32-36); Mean Corpuscular Volume 90.1 FL (87-102); Mean Platelet Volume 10.4 FL (9.6-12.0); Monocytes % 11.5 % (1.7-12.7); Neutrophils % 76.5 % (38.7-73.9); Platelet Count 86 T/CUMM (130-400); Red Blood Count 3.23 MC/CUMM (3.8-5.5); Red Cell Distribution Width 18.6 % (9.3-17.3); White Blood Count 4.6 T/CUMM (4-12)
[2021-07-26 07:12] LABS: Hypochromia Slight; Microcytosis Slight; Platelet Estimate Decreased
[2021-07-26 07:24] LABS: Albumin 2.7 G/DL (3.4-5.0); Bilirubin,Total 1.8 MG/DL (0.20-1.00); Osmolality,Calculated 281.7 MOS/KG (273-304); Risk Ratio 4.19; Thyroid Stimulating Hormone 2.82 uIU/ml (0.358-3.74); Total Protein 7.6 G/DL (6.4-8.2)
[2021-07-26] MEDS: INSULIN LISPRO 100 UNIT/ML SUBCUT SCH ×4 (07:56→21:04)
[2021-07-26] MEDS ORDERED: GLUCAGON 1 MG VIAL IM PRN (08:28)
[2021-07-26] MEDS ORDERED: DEXTROSE 50% 25 GM/50 ML SYRINGE IV PRN (08:29)
[2021-07-26] MEDS: ASCORBIC ACID 500 MG TABLET PO SCH (08:51)
[2021-07-26] MEDS: TAMSULOSIN 0.4 MG CAPSULE PO SCH ×2 (08:51→20:57)
[2021-07-26] MEDS: PANTOPRAZOLE 40 MG TABLET PO SCH (08:51)
[2021-07-26] MEDS: GABAPENTIN 300 MG CAPSULE PO SCH ×3 (08:51→20:57)
[2021-07-26] MEDS: PROPRANOLOL 10 MG TABLET PO SCH (08:51)
[2021-07-26] MEDS: FUROSEMIDE 20 MG/2 ML VIAL IV SCH ×2 (11:20→15:39)
[2021-07-26] MEDS: ATORVASTATIN 20 MG TABLET PO SCH (20:57)
[2021-07-26] MEDS: ACETAMINOPHEN 325 MG TABLET PO PRN (22:59)
[2021-07-27] MEDS: LACTULOSE 20 GM/30 ML UDCUP PO SCH ×2 (02:13→06:54)
[2021-07-27] MEDS: ACETAMINOPHEN 325 MG TABLET PO PRN (03:30)
[2021-07-27 06:42] LABS: Basophils % 0.4 % (0.0-0.8); Eosinophils % 1.7 % (0.00-10.9); Hematocrit 26.9 VOL% (42.0-52.0); Hemoglobin 8.5 GM/DL (14.0-18.0); Immature Granulocytes % 0.8 %; Immature Granulocytes Absolute 0.02 #; Lymphocytes # 0.4 10*3/uL (1.4-4.0); Lymphocytes % 16.4 % (21.2-54.2); Mean Corpuscular HGB Conc 31.6 GM/DL (32-36); Mean Corpuscular Volume 90.3 FL (87-102); Mean Platelet Volume 9.8 FL (9.6-12.0); Monocytes % 14.3 % (1.7-12.7); Neutrophils % 66.4 % (38.7-73.9); Red Blood Count 2.98 MC/CUMM (3.8-5.5); Red Cell Distribution Width 18.1 % (9.3-17.3)
[2021-07-27 07:02] LABS: Platelet Count 62 T/CUMM (130-400); White Blood Count 2.4 T/CUMM (4-12)
[2021-07-27 07:04] LABS: Hypochromia 1+; Microcytosis 1+; Platelet Estimate Decreased
[2021-07-27 07:06] LABS: Albumin 2.5 G/DL (3.4-5.0); Bilirubin,Total 2.3 MG/DL (0.20-1.00); Calcium 8.3 MG/DL (8.5-10.1); Osmolality,Calculated 284.7 MOS/KG (273-304); Total Protein 7.1 G/DL (6.4-8.2)
[2021-07-27] MEDS: INSULIN LISPRO 100 UNIT/ML SUBCUT SCH (08:13)
[2021-07-27] MEDS: FUROSEMIDE 20 MG/2 ML VIAL IV SCH (08:13)
[2021-07-27] MEDS: GABAPENTIN 300 MG CAPSULE PO SCH (08:14)
[2021-07-27] MEDS: PANTOPRAZOLE 40 MG TABLET PO SCH (08:14)
[2021-07-27] MEDS: ASCORBIC ACID 500 MG TABLET PO SCH (08:14)
[2021-07-27] MEDS: PROPRANOLOL 10 MG TABLET PO SCH (08:14)
[2021-07-27] MEDS: TAMSULOSIN 0.4 MG CAPSULE PO SCH (08:37)
[2021-07-27 08:51] VITALS: BP 119/46
== END 2021-07-27 12:18 | disposition home or self-care (01) | DRG 312 ==
LOC: N.ED 13:50 → N.EDINP 17:12 → N.5E 18:22
PROVIDERS: ADMIT Internal Medicine; ATTEND Internal Medicine